=== PATIENT | female | born 1935 | race Caucasian/White ===

== ENCOUNTER 2024-02-02 09:32 | Emergency (ER) | payer MEDICARE, MEDICAID ==
[~2024-02-02] VITALS: Ht 167.6 cm; Wt 150.0 kg
[~2024-02-02 09:32] MED LIST: NO HOME MEDS
[2024-02-02 10:14] VITALS: O2SAT 92
[2024-02-02] MEDS: ondansetron 4mg rapidly disintigrating tab PO ONE (10:39)
[2024-02-02 10:55] VITALS: BP 73/51; PULSE 120; RESP 33
== END 2024-02-02 10:55 | disposition hospice, home (50) ==
LOC: ER 09:32
DX: K92.2 Gastrointestinal hemorrhage, unspecified (principal); K92.0 Hematemesis; M19.90 Unspecified osteoarthritis, unspecified site
CPT/HCPCS: 99284